=== PATIENT | female | born 1935 | race Hispanic/Latino ===

== ENCOUNTER 2018-10-22 13:14 | Inpatient (IN) | payer MEDICARE ==
[~2018-10-22] VITALS: Ht 160 cm; Wt 91.2 kg
[~2018-10-22 13:14] MED LIST: ACETAMINOPHEN650 M1 PO; ADULT LOW DOSE81 MG PO; CARVEDILOL25 MG; COREG12.5 MG PO; FUROSEMIDE40 MG; HECTOROL2 MCG/1 ML PO; HUMALOG100 UNIT/1 SC; ISOSORBIDE MONO30 MG; LANTUS 3ML100 UNITS/ SQ; LANTUS100 UNIT/1 SQ; LEVAQUIN250 MG PO; LISINOPRIL10 MG PO; LISINOPRIL20 MG PO; NIFEDIPINE ER90 MG PO; NOVOLIN R100 UNIT/1 SQ; PHOSLO667 MG; PHOSLO667 MG PO; SODIUM BICARBO650 MG PO; TYLENOL ARTHRI650 MG PO; ZOCOR40 MG PO; [UNRECOGNIZED DRUG - OTHER] PO
--- OUTSIDE RECORDS SUMMARY | 2018-10-22 13:18 | XMS REPORT | Clinical Summary ---
Author Author [facility] Address Unknown Phone Unavailable Care Team Providers Care Advertising Representative Name Role Phone Asked, No Pcp PCP Unavailable Allergies Comments Active Allergy Reactions Severity Noted Date Iodine 07/17/2016 Nsaids (Non-Steroidal 07/17/2016 Anti-Inflammatory Drug) Penicillins 07/17/2016 Medications End Date Status Medication Sig Dispensed Refills Start Date Active aspirin (ECOTRIN) 81 MG Take 81 mg by 0 enteric coated tablet mouth daily. Active lisinopril Take 20 mg by 0 (PRINIVIL,ZESTRIL) 20 mg mouth daily. tablet Active sodium bicarbonate 648 MG Take 648 mg 0 tablet by mouth 4 (four) times a day. Active vitamin A 8000 UNIT Take 8,000 0 capsule Units by mouth daily. Active ascorbic acid, vitamin C, Take 500 mg 0 (ascorbic acid with yenni by mouth hips) 500 MG tablet daily. Active INSULIN Inject under 0 GLARGINE,HUM.REC.ANLOG the skin. (LANTUS SUBQ) Active insulin ASPART (NovoLOG Inject under 0 Flexpen) 100 unit/mL the skin. insulin pen Active Problems Not on file Family History Medical History Relation Name Comments Diabetes Brother Heart disease Brother Hepatitis Brother Hypertension Brother Lung disease Brother Arthritis Mother Hypertension Mother Alcohol abuse Sister Arthritis Sister Diabetes Sister Drug abuse Sister Heart disease Sister Hypertension Sister Lung disease Sister Relation Name Status Comments Brother Mother Sister Social History Date Tobacco Use Types Packs/Day Years Used Never Smoker Alcohol Use Drinks/Week oz/Week Comments No Sex Assigned at Date Recorded Not on file Industry Job Start Date Occupation Not on file Not on file Not on file Travel End Travel History Travel Start No recent travel history available. Last Filed Vital Signs Not on file Plan of Treatment Health Maintenance Due Date Last Done Comments SHINGLES VACCINES (#1) 1986 65+ PNEUMOCOCCAL VACCINE 2001 (1 of 2 - PCV13) INFLUENZA VACCINE 10/09/2018 Results Not on fileafter 10/21/2017 Insurance Type Payer Benefit Subscriber ID Effective Phone Address Plan / Dates Group Medicare MEDICARE MEDICARE xxxxxxxxxx [id number] [place], PART A AND [place] Advance Directives Patient has advance care planning documents on file. For more information, michelle sanchez contact: Blair Christian [address] [place] [address]
--- OUTSIDE RECORDS SUMMARY | 2018-10-22 13:18 | XMS REPORT ---
[facility] Address Unknown Phone Unavailable Care Team Providers Care Quality Assurance Supervisor Body Name Role Phone Jeovany YANCEY Unavailable Unavailable Problems This patient has no known problems. Allergies, Adverse Reactions, Alerts This patient has no known allergies or adverse reactions. Medications This patient has no known medications. Results Test Description Test Time Test Comments Text Results Atomic Results Result Comments CHEST 2 VIEWS [place] [address] Patient Name: SAVANNAH ELLIS MR #: [id number] : 1935 Age/Sex: 81/F Req #: [id number] Adm Physician: Ordered by: ISAK YANCEY MD Report #: [id number] Location: RAD Room/Bed: Procedure: [id number] DX/CHEST 2 VIEWS Exam Date: Exam Time: REPORT STATUS: Signed PROCEDURE: X- RAY CHEST, TWO VIEWS COMPARISON: 03/03/2014. INDICATIONS: FLUID OVERLOAD, ASTHMA FINDINGS: The lungs remain well inflated. No focal airspace consolidation, pleural effusion, or pneumothorax. Stable cardiomediastinal contour with tortuosity and atherosclerotic calcification of the thoracic aorta. Pulmonary venous congestion is similar in degree to that noted on 03/03/2014. No acute osseous abnormality. Multilevel degenerative disc changes of the thoracic spine. CONCLUSION: Pulmonary venous congestion, similar in degree to that noted on 03/03/2014. Dictated by: Candida Lima M.D. on 11/01/2016 at 14:00 Electronically approved by: Candida Lima M.D. on 11/01/2016 at 14:00 Dictated By: CANDIDA LIMA MD 1400 Transcribed By: ANN on 11/01/16 1400 COPY TO: ISAK YANCEY MD
[2018-10-22] MEDS ORDERED: CLONIDINE HCL 0.2 MG TAB PO ONE (13:45)
[2018-10-22] MEDS ORDERED: ONDANSETRON HCL 4 MG ORAL DISINTEGRATING TAB PO ONE (13:45)
[2018-10-22] MEDS: HYDROCODONE/APAP 5MG-325MG TAB PO ONE ×2 (13:51→13:52)
[2018-10-22] MEDS ORDERED: HYDROCODONE/APAP 5MG-325MG TAB ONE (13:54)
--- NOTE | 2018-10-22 13:54 | NUR ---
PT REFUSED O2. STATES NOT SOB AND FEELS COMFORTABLE. PT SUPPOSE TO WEAR O2 AT HOME, BUT IS NON COMPLAINT PER PT AND FM
[2018-10-22] MEDS ORDERED: CLONIDINE HCL 0.1 MG TAB ONE (13:55)
[2018-10-22] MEDS ORDERED: HYDROCODONE/APAP 5MG-325MG TAB PO ONE (14:00)
--- NOTE | 2018-10-22 14:09 | Diagnostic Imaging Report ---
EXAMINATION: CXR 1 [facility] INDICATION: Pain COMPARISON: Reports of multiple prior chest radiographs most recently 06/07/2015. Images not available for comparison. FINDINGS: LINES/TUBES:None LUNGS:The lungs are moderately inflated. There is perihilar fullness and indistinctness of the pulmonary vasculature. PLEURA:No pleural effusion or pneumothorax. MEDIASTINUM:Cardiomediastinal silhouette is stably enlarged. Atherosclerotic calcifications of the thoracic aorta. BONES/SOFT TISSUES:No acute osseous injury. ABDOMEN:No free air under the diaphragm. IMPRESSION: Pulmonary interstitial edema. Cardiomegaly. Signed by: Vicki Johnson MD on 10/22/2018 2:06 PM
[2018-10-22] MEDS ORDERED: ZOLPIDEM TARTRATE 5 MG TAB PO PRN (14:30)
[2018-10-22] MEDS ORDERED: HYDROCODONE/APAP 7.5MG-325MG 1 EA TAB PO PRN (14:30)
[2018-10-22] MEDS ORDERED: ONDANSETRON HCL INJ 2MG/ML 2ML 2 MG/ML VIAL IV PRN (14:30)
[2018-10-22] MEDS ORDERED: HYDRALAZINE HCL 20 MG/ML VIAL IV PRN (14:30)
[2018-10-22] MEDS ORDERED: DIPHENHYDRAMINE HCL INJ 50 MG/ML VIAL IV PRN (14:30)
[2018-10-22] MEDS ORDERED: SODIUM CHLORIDE FLUSH 10 ML SYR INJ PRN (14:30)
[2018-10-22] MEDS ORDERED: CLONIDINE HCL 0.2 MG TAB PO PRN (14:30)
[2018-10-22] MEDS ORDERED: ACETAMINOPHEN 325 MG TAB PO PRN (14:30)
[2018-10-22] MEDS ORDERED: MORPHINE SULFATE 2 MG/ML SYR 1ML IV PRN (14:30)
--- NOTE | 2018-10-22 14:55 | NUR ---
[facility] called for transport
--- NOTE | 2018-10-22 15:11 | NUR ---
now agrees to o2
--- NOTE | 2018-10-22 15:52 | NUR ---
update plan of care, eta 10=12 mins ems
[2018-10-22] MEDS ORDERED: FAMOTIDINE 20 MG TAB PO SCH (16:30)
--- NOTE | 2018-10-22 16:50 | NUR ---
received pt via stretcher from ER accompanied by 2 daughters. pt Bangladeshi speaking. denies pain. Resp even and unlabored on 2 lpm O2 via NC. oriented to room and use of call light, call light placed within reach.
--- OUTSIDE RECORDS SUMMARY | 2018-10-22 17:20 | XMS REPORT | Clinical Summary ---
Author Author [facility] Organization [facility] Address Unknown Phone Unavailable Care Team Providers Care Custody Officer Name Role Phone Asked, No Pcp PCP [...] more information, michelle sanchez contact: Blair Christian [address] [place] [address]
[2018-10-22] MEDS ORDERED: SODIUM CHLORIDE 0.9% 1000ML 2,000 ML ONE (17:28)
[2018-10-22 17:29] VITALS: BP 109/70
[2018-10-22] MEDS ORDERED: DEXTROSE 50% SYRINGE 50 ML IV PRN (17:30)
[2018-10-22] MEDS ORDERED: EPOETIN ALFA 10000 UNIT/ML VIAL SC SCH (18:15)
[2018-10-22 18:49] VITALS: BP 109/70
[2018-10-22 18:53] VITALS: BP 109/70
[2018-10-22] MEDS ORDERED: NOVOLOG100 UNITS1 SC (19:21)
[2018-10-22] MEDS ORDERED: LANTUS 3ML100 UNITS/ SQ (19:21)
--- NOTE | 2018-10-22 19:45 | NUR ---
PATIENT IS AOX3, NO DISTRESS NOTED. PATIENT CURRENTLY ON DIALYSIS AND FAMILY MEMBER IS PRESENT AT BEDSIDE. NASAL CANNULA IS INTACT AND FLOWING AT 2 LITERS, CALL LIGHT WITHIN REACH, WILL CONTINUE TO MONITOR.
[2018-10-22 20:10] VITALS: BP 138/47
[2018-10-22] MEDS: INSULIN LISPRO 100 UNIT/1 ML 3ML VIAL SQ SCH (20:12)
--- NOTE | 2018-10-22 21:40 | NUR ---
PATIENT IS COMPLETE WITH DIALYSIS, NO SIGNS OF DISTRESS. PATIENT IS RESTING COMFORTABLY, FAMILY MEMBER IS PRESENT, WILL CONTINUE TO MONITOR.
[2018-10-22 21:50] VITALS: BP 138/47
--- NOTE | 2018-10-22 22:05 | NUR ---
RADIOLOGY HAS COME TO PICK THE PATIENT UP FOR CT SCAN.
--- NOTE | 2018-10-22 22:35 | NUR ---
RADIOLOGY HAS RETURNED PATIENT FROM CT SCAN.
[2018-10-22] MEDS ORDERED: ATORVASTATIN CA20 MG PO (22:42)
[2018-10-22] MEDS ORDERED: VITAMIN D1000 UNI1 PO (22:42)
--- NOTE | 2018-10-22 22:57 | Diagnostic Imaging Report ---
EXAMINATION: Head CT without contrast. HISTORY:Altered mental status. COMPARISON:Report of CT head from 06/03/2015, prior images are not available for comparison at the time of interpretation. TECHNIQUE: Multidetector axial images were obtained from the foramen magnum to the vertex without contrast. The images were reconstructed using brain and bone algorithms. Thin section brain images were reformatted into coronal and sagittal planes. Dose modulation, iterative reconstruction, and/or weight based adjustment of the mA/kV was utilized to reduce the radiation dose to as low as reasonably achievable. Intravenous contrast: None IMAGE QUALITY: Suboptimal evaluation due to motion artifact particularly at the level of skull base and posterior fossa structures. FINDINGS: Skull/scalp: No lytic or blastic. lesions. No surgical changes. Parenchyma: Nonspecific bilateral frontoparietal patchy white matter hypodensity are likely related to small vessel ischemic changes. Focal hypodensity in the general of right internal capsule that extends to the right lentiform nucleus represents chronic lacunar infarct. No acute hemorrhage, mass or acute major vascular territorial infarct. Arteries: No density suggestive of thrombosis. Dural sinuses: No abnormal density suggestive of thrombosis. Ventricles: Moderate compensated dilatation due to volume loss. No hydrocephalus. Extra-axial spaces: No abnormal density. Brain volume: Generalized age-related cerebral volume loss. Craniocervical junction: No mass, Chiari malformation, or basilar invagination. Sella: No mass. Paranasal/mastoid sinuses: Imaged portions unremarkable. IMPRESSION: 1. No acute intracranial abnormality, particularly no acute hemorrhage, mass or acute major vascular territorial infarct. 2. Chronic lacunar infarct in right striato-capsular region. 3. Mild supratentorial white matter microvascular ischemic changes. 4. Generalized age-related cerebral volume loss. Signed by: Dr. Savanah Cline M.D. on 10/22/2018 10:53 PM
[2018-10-22 23:46] VITALS: BP 138/64
[2018-10-23] VITALS (9 sets, daily range): BP systolic 113–148; BP diastolic 42–56
--- NOTE | 2018-10-23 01:54 | Consultation ---
DATE OF CONSULTATION: 10/22/2018 Renal consultation. REASON FOR CONSULTATION: End-stage renal disease, volume overload. HISTORY OF PRESENT ILLNESS: An 83-year-old female with end-stage renal disease, on hemodialysis Saturday, Saturday, Saturday, who after 30 minutes of dialysis was having severe bilateral hand pain and left shoulder pain, requiring to be taken off dialysis. The patient was brought to [facility]. She was found to have volume overload and pulmonary edema and was admitted, and the patient is currently on hemodialysis without hand or shoulder pain. According to the patient's daughter, she has been slurring her speech. Lately, she has noticed some facial asymmetry and was concerned she might have had a stroke that has been going on for a few days. REVIEW OF SYSTEMS: As above. All other systems negative. PAST MEDICAL HISTORY: 1. End-stage renal disease, on hemodialysis Saturday, Saturday, Saturday at [facility]. 2. Diabetes. 3. Edema. 4. Hypertension. 5. Congestive heart failure. 6. Secondary hyperparathyroidism. PAST SURGICAL HISTORY: Left upper extremity AV fistula. SOCIAL HISTORY: No tobacco. No alcohol. No IV drugs. FAMILY HISTORY: Noncontributory. ALLERGIES: PENICILLIN AND IODINE. CURRENT MEDICATIONS: See list. PHYSICAL EXAMINATION: VITAL SIGNS: Blood pressure 109/70, pulse 55, respiratory rate 20, and temperature 97.2. GENERAL: No apparent distress. HEENT: Oropharynx clear. No scleral icterus. No peripheral edema. NECK: Supple. Difficult to assess jugular venous pressure. CHEST: Clear to auscultation with decreased breath sounds at bases. CARDIOVASCULAR: Regular rate and rhythm. ABDOMEN: Soft. Positive bowel sounds. EXTREMITIES: +edema. LABORATORY DATA: Hemoglobin 9.6, potassium 4.3, albumin 2.3, and phosphorus 5.1, and troponin 0.057. ASSESSMENT AND PLAN: 1. End-stage renal disease. The patient currently on hemodialysis. We will continue Saturday, Saturday, Saturday. 2. Volume overload with pulmonary edema. We will schedule for extra ultrafiltration in the morning. 3. Anemia secondary to chronic kidney disease. We will start the patient on Epogen. 4. Altered mental status with facial asymmetry. We will get a CT scan, may need MRI and neurology evaluation. 5. Shoulder pain, unclear etiology. MD DUSTIN Hinojosa /[id number]
[2018-10-23] MEDS: INSULIN LISPRO 100 UNIT/1 ML 3ML VIAL SQ SCH ×4 (07:30→22:10)
[2018-10-23 07:57] LABS: BASOPHILS # (AUTO) 0.1 (0.0-0.1); BASOPHILS % 1.1 % (0.0-1.0); EOSINOPHILS # (AUTO) 0.2 (0.0-0.4); HEMATOCRIT 38.7 % (34.2-44.1); HEMOGLOBIN 12.1 g/dL (12.0-16.0); LYMPHOCYTES # (AUTO) 1.1 (1.0-3.2); LYMPHOCYTES % 24.7 % (18.0-39.1); MEAN CORPUSCULAR HEMOGLOBIN 31.8 pg (28-32); MEAN CORPUSCULAR HGB CONC 31.3 g/dL (31-35); MEAN CORPUSCULAR VOLUME 101.6 fL (81-99); MONOCYTES # (AUTO) 0.5 (0.2-0.8); NEUTROPHILS # (AUTO) 2.7 (2.1-6.9); PLATELET COUNT 194 x10e3/uL (140-360); RED BLOOD COUNT 3.81 x10e6/uL (3.6-5.1)
[2018-10-23 08:15] LABS: ANION GAP 12.3 mmol/L (8-16); CALCIUM 8.4 mg/dL (8.4-10.2); CREATININE, SERUM 4.23 mg/dL (0.57-1.11); POTASSIUM 4.3 mmol/L (3.5-5.1)
[2018-10-23] MEDS ORDERED: FAMOTIDINE 20 MG TAB ONE (09:28)
[2018-10-23] MEDS: FAMOTIDINE 20 MG TAB PO SCH ×2 (09:46→17:30)
[2018-10-23] MEDS ORDERED: SODIUM CHLORIDE 0.9% 1000ML 2,000 ML ONE (09:53)
--- NOTE | 2018-10-23 18:28 | Consultation ---
DATE OF CONSULTATION: 10/23/2018 Cardiology Consultation CONSULTING PHYSICIAN: Maynor Rojas MD, Interventional Cardiology. REASON FOR CONSULTATION: Shortness of breath and discomfort to the upper extremities, recent facial droop per family concerning for stroke. HISTORY OF PRESENT ILLNESS: An 83-year-old woman with a past medical history significant for morbid obesity, hypertension, diabetes mellitus, dyslipidemia, and end-stage renal disease on scheduled dialysis for approximately six years, presents to the hospital with complaints of progressive fatigue and shortness of breath following incomplete dialysis. The patient was asking for dialysis to be discontinued after approximately 30 minute of the sessions due to complaints of upper extremity and shoulder discomfort. She was found to be in volume overload. After resumption of dialysis, she has tolerated it well, declining any presence of chest discomfort or upper extremity discomfort whatsoever during dialysis or after. She denies any exertional complaints. Per family member, she has some facial droop for which a stroke workup is underway. Currently, she feels well. REVIEW OF SYSTEMS: A 12-system review is negative except for as noted above. ALLERGIES: PENICILLIN AND IODINE INCLUDING ORAL AND IV DYE. PAST MEDICAL HISTORY: Significant for hypertension, dyslipidemia, diabetes mellitus, end-stage renal disease and secondary hyperparathyroidism. SOCIAL HISTORY: No smoking, alcohol, or drugs. FAMILY HISTORY: Noncontributory. PHYSICAL EXAMINATION: VITAL SIGNS: Temperature 97.9, heart rate 57, blood pressure 148/55, respiratory rate 20, O2 saturation 95%. BMI 35.6. GENERAL: In no acute distress, alert. NECK: No JVD. CHEST: Clear to auscultation. CARDIOVASCULAR: Regular rate and rhythm. Normal S1, S2. No S3 or S4. Systolic ejection murmur 1/6. ABDOMEN: Soft and nontender. EXTREMITIES: With no edema. Warm distal extremities. Some telangiectasias to lower extremities and slight skin discoloration. CARDIOVASCULAR MEDICATIONS: Reviewed. Hydralazine 10 mg every 4 hours p.r.n., clonidine 0.2 mg t.i.d. p.r.n. on insulin lispro. LABORATORY DATA: Studies reviewed. Sodium 135, potassium 4.3, chloride 96, bicarbonate 31, BUN 18, creatinine 4.2, glucose 140. White blood cells 4.5, hemoglobin 12.1, platelets 194. IMAGING DATA: Echocardiogram evaluated, preserved left ventricular systolic function. Left ventricular ejection fraction of 60% to 65%. Impaired relaxation, which is age-appropriate and left atrial enlargement, mild and aortic valve sclerosis. ASSESSMENT: 1. An 83-year-old woman presents with volume overload in the setting of incomplete dialysis sessions, now improving following resumption of dialysis, full sessions. 2. Episodes of facial droop, undergoing evaluation for possible stroke. 3. History of hypertension, most recently being managed with p.r.n. medications as her blood pressure has been on the lower side during dialysis. 4. Morbid obesity. 5. Metabolic syndrome. RECOMMENDATIONS: 1. Continue p.r.n. antihypertensives for now. 2. Consider adding aspirin and statin therapy. 3. Await imaging studies from brain standpoint and a neurologic assessment regarding possible CVA. Thank you for the opportunity to participate in the care of Ms. June. Please call with any questions, . MD ISRAEL Weston/MODKrystal /[id number]
--- NOTE | 2018-10-23 19:33 | Consultation ---
DATE OF CONSULTATION: 10/23/2018 Neurology Consult Note HISTORY OF PRESENT ILLNESS: Ms. Gomes is an 83-year-old woman with an extensive past medical history, admitted to [facility] as an inpatient on October 22, 2018, with end-stage renal disease with volume overload with pulmonary edema. At the time of admission, the patient's daughter endorsed a 1-week history of neurological deficits, prompting the request for a neurological evaluation. Over the past one week, the patient has appeared more confused with slurred speech, left hemiparesis, and deviation of the tongue towards the left. According to the patient's daughter, who is a nurse, these symptoms have waxed and waned over the past several days. Ms. Gomes previously experienced similar symptoms 1-1/2 years ago with hypercapnia. Other symptoms endorsed by the patient over an unknown period of time include numbness and tingling of both hands and arms, left shoulder pain with radicular pain to the left elbow, lower extremity edema and pain. Upon presentation to the emergency center at [facility], the patient was afebrile with a blood pressure of 202/79 mmHg and a pulse of 69 beats per minute. Documentation of the patient's neurological examination is unavailable for review at this time. While in the emergency center, the patient underwent a CT of the brain without contrast, which did not show evidence of recent large territorial ischemia or hemorrhage. However, the study did reveal a remote lacunar infarct in the right striatocapsular region. According to the patient's daughter, neither Ms. Gomes nor any of her family members were aware that the patient had previously suffered a stroke. Ms. Gomes was admitted to [facility] as an inpatient for hemodialysis as well as management of hypertension. As the patient's blood pressure has been gradually normalized and as the patient has received hemodialysis (10/22/2018 and 10/23/2018), the previously described confusion, slurred speech, left hemiparesis, and left tongue deviation have significantly improved/resolved. REVIEW OF SYSTEMS: Left shoulder pain, confusion, deviation of the tongue towards the left, dysarthria, left hemiparesis, bilateral arm numbness and tingling, lower extremity pain and edema. Otherwise, a 12-point review of systems is negative. PAST MEDICAL HISTORY: Hypertension, hyperlipidemia, diabetes mellitus, congestive heart failure, end-stage renal disease on hemodialysis Mondays, Wednesdays, and Fridays, nephrolithiasis, pancreatitis, prior stroke with unknown residual deficits, secondary hyperparathyroidism, peripheral vascular disease, deep venous thromboses, congenital absence of the gallbladder. PAST SURGICAL HISTORY: Left nephrectomy, left knee meniscectomy, ORIF for left hip fracture, left forearm AV fistula placement. PAST HOSPITALIZATIONS: Surgeries/procedures as listed, childbirth, multiple hospitalizations for various symptoms and diagnoses. FAMILY MEDICAL HISTORY: The patient's mother is from an intracerebral hemorrhage. She had hypertension as well. The patient's sister is alive and has diabetes mellitus. Otherwise, no significant family medical history is reported. SOCIAL HISTORY: Ms. Gomes is . She is a housewife. The patient does not report current or prior tobacco, alcohol, or recreational drug use. HOME MEDICATIONS: Aspirin 81 mg by mouth daily, atorvastatin 40 mg by mouth daily, NovoLog 10 units injected subcutaneously three times daily with meals, Lantus 15 units injected subcutaneously at bedtime daily, calcium acetate 667 mg capsule, sodium bicarbonate 650 mg by mouth twice daily, vitamin D3 1000 units by mouth daily. HOSPITAL MEDICATIONS: Tylenol, clonidine, dextrose, Benadryl, hydralazine, E[place], Humalog, morphine, Zofran, Ambien. ALLERGIES: PENICILLIN. NO KNOWN FOOD ALLERGIES. NO KNOWN ALLERGIES TO LATEX. THE PATIENT HAS A DOCUMENTED ALLERGY TO IODINE, BUT THE DAUGHTER REPORTS THIS ALLERGY WAS PLACED IN THE PATIENT'S CHART DUE TO POOR RENAL FUNCTION. TO HER KNOWLEDGE, MS. GOMES HAS NEVER EXPERIENCED AN ALLERGIC REACTION TO IODINATED CONTRAST. PHYSICAL EXAMINATION: VITAL SIGNS: Height 63 inches, weight 201 pounds, BMI 35.6 kg/m2, blood pressure 148/55 mmHg, pulse 57 beats per minute, respiratory rate 20 breaths per minute, and oxygen saturation 95% on 2 L by nasal cannula. GENERAL: The patient is awake and alert, does not appear distressed. Obese. HEENT: Normocephalic, atraumatic. Pupils are equal, round, and reactive to light. Moist mucous membranes. NECK: Supple. No appreciable thyromegaly. No appreciable carotid bruits. CARDIOVASCULAR: S1, S2, regular rate and rhythm. No murmurs, rubs, or gallops. RESPIRATORY: Clear to auscultation bilaterally. No wheezes, rhonchi, or rales. EXTREMITIES: The skin is warm and dry. No clubbing, cyanosis, or edema. The posterior tibial and dorsalis pedis pulses are 1+ and symmetric. SKIN: No rashes or lesions. NEUROLOGIC: Memory/Attention: The patient is awake and alert, oriented to person, place, time, and situation. Cranial Nerves: Cranial nerve I- not tested. Cranial nerve II, III, IV, and - pupils are equal and round, react briskly to light (from 4 mm to 2 mm). Extraocular movements intact. No nystagmus. Cranial nerve V - sensation to light touch is grossly intact in the bilateral V1 through V3 distributions. Strength in the temporalis and masseter muscles are within normal limits. Cranial nerve VII - the face is symmetric as are all facial movements. Strength is within normal limits. Cranial nerve VIII - hearing is intact to finger rub bilaterally. Cranial nerve 9, 10-the soft palate elevates equally and symmetrically. Cranial nerve XI - normal strength of the bilateral sternocleidomastoid and trapezius muscles. Cranial nerve 12-the tongue protrudes midline and moves symmetrically from [id number]. Strength: Bulk is normal. Strength is 5/5 in the right deltoid, biceps, triceps, wrist flexors and extensors, finger flexors and extensors, intrinsic hand muscles, hip flexors, knee flexors and extensors, ankle dorsiflexion and plantar flexion, and intrinsic foot muscles. Strength is 5/5 in the left arm flexors, 4+/5 in the left arm extensors, 4+/5 in the left leg flexors, and 5/5 in the left leg extensors. Tone is mildly increased in the left arm and left leg. DTRs: Deep tendon reflexes are 1+ and symmetric at the triceps, biceps, and brachioradialis. Deep tendon reflexes are trace and symmetric at the patellas. Deep tendon reflexes are absent and symmetric at the Achilles. Plantar responses are flexor bilaterally. Sensation: Sensation is grossly intact to light touch in both arms and both legs. Cerebellar: Deferred secondary to the patient's pain. Gait: Deferred. Speech: Spontaneous speech is normal without appreciable dysarthria or aphasia. Repetition is intact. Involuntary movements: None. Pronator drift: Positive in the left arm. LABORATORY DATA: A basic metabolic panel is significant for sodium of 135, chloride of 96, carbon dioxide of 31, creatinine of 4.23, estimated GFR of 10, and glucose of 140. Serum glucoses have ranged from 55-140 since the patient's admission. CBC with differential and platelets reveals a white blood cell count of 4.54 with 59.0% neutrophils, 24.7% lymphocytes, 11.0% monocytes, 4.0% eosinophils, and 1.1% basophils. The hemoglobin and hematocrit are 12.1 and 38.7, respectively. The platelet count is 194. DIAGNOSTIC STUDIES: Echocardiogram on 10/23/2018: Ejection fraction 35% to 40%. Concentric left ventricular hypertrophy. Left atrial enlargement. Left ventricular enlargement. Trace mitral and tricuspid regurgitation. Chest x-ray on 10/22/2018: Pulmonary interstitial edema. Cardiomegaly. CT of the brain without contrast 10/22/2018: On my review, there is no evidence of recent large territorial ischemia, hemorrhage, mass, or mass effect. A chronic lacunar infarct is seen in the right striatocapsular region. There is mild diffuse cerebral atrophy with compensatory dilatation of the ventricles, appropriate for the patient's age. Their findings compatible with [id number] chronic small-vessel ischemic disease. ASSESSMENT AND PLAN: Ms. Gomes is an 83-year-old woman with an extensive past medical history, admitted to [facility] on October 22, 2018, with hypertensive emergency, end-stage renal disease on hemodialysis with a need for hemodialysis secondary to incomplete hemodialysis prior to arrival and volume overload with a 1-week history of fluctuating confusion, slurred speech, and left hemiparesis. The patient has undergone a thorough neurological examination with findings detailed above. Her laboratory data and other diagnostic studies have been reviewed and are documented above. In my opinion, Ms. Gomes's symptoms are directly or indirectly, through recurrence of prior deficits, related to hypertensive emergency and end-stage renal disease with volume overload. Continue with current treatments and the patient will return to her prior neurological baseline. There are no new recommendations from the Neurology Service at this time. The patient may be discharged per the primary service. TIME SPENT: 70 minutes. Germania Severino MD CP/MODL /[id number]
[2018-10-23] MEDS ORDERED: GABAPENTIN 100 MG CAP PO SCH (21:00)
[2018-10-24 04:57] VITALS: BP 117/44
[2018-10-24] MEDS ORDERED: ACETAMINOPHEN 325 MG TAB PO PRN (05:15)
--- NOTE | 2018-10-24 07:00 | NUR ---
RECEIVED AM REPORT FROM NURSE, MORNING ROUNDS DONE. PT IS RESTING COMFORTABLY IN BED, NO S/S OF DISTRESS. CALL LIGHT WITHIN REACH, SIDE RAILS UP. DAUGHTER IS AT THE BEDSIDE.
--- NOTE | 2018-10-24 07:06 | NUR ---
REPORT GIVEN TO DAY NURSE. PATIENT IS RESTING COMFORTABLY IN BED. BED IS IN LOWEST POSITION AND CALL OBANDO IS WITHIN REACH.
[2018-10-24] MEDS: INSULIN LISPRO 100 UNIT/1 ML 3ML VIAL SQ SCH ×2 (07:30→11:30)
[2018-10-24 08:15] VITALS: BP 122/47
[2018-10-24 09:15] VITALS: BP 122/47
[2018-10-24] MEDS: FAMOTIDINE 20 MG TAB PO SCH (09:15)
[2018-10-24] MEDS ORDERED: SODIUM CHLORIDE 0.9% 1000ML 2,000 ML ONE (09:28)
--- NOTE | 2018-10-24 10:30 | NUR ---
DR. CARSON AT THE BEDSIDE. GAVE VERBAL ORDERS TO CHECK WITH NEURO AND CARDIO TO GET CLEARANCE FOR DISCHARGE. IF NEURO AND CARDIO CLEARS PT, DR. CARSON GAVE VERBAL ORDERS TO DISCHARGE THE PT HOME.
[2018-10-24 12:00] VITALS: BP 122/46
--- NOTE | 2018-10-24 12:32 | NUR ---
EDUCATED ABOUT IMM, SIGNED, FILED IN CHART, WITH COPY LEFT WITH FAMILY AT BEDSIDE.
--- NOTE | 2018-10-24 14:33 | Progress Note ---
DATE: 10/24/2018 Cardiology Progress Note SUBJECTIVE: No complaints today. Undergoing dialysis. Denies chest pain or shortness of breath. Denies any episodes of weakness or numbness and neurologic evaluation is undergoing. OBJECTIVE: VITAL SIGNS: Temperature 97 degrees, heart rate 65, blood pressure 122/47, respiratory rate 17, O2 saturation 97%, BMI 35.6. GENERAL: No acute distress, alert. NECK: No JVD. CHEST: Clear to auscultation. CARDIOVASCULAR: Regular rate and rhythm. Normal S1 and S2. ABDOMEN: Soft, nontender. EXTREMITIES: No edema. CARDIOVASCULAR MEDICATIONS: Reviewed. Clonidine 0.2 mg t.i.d. p.r.n., hydralazine 10 mg q.4 hours p.r.n. STUDIES: Reviewed. Sodium 135, potassium 4.3, chloride 96, bicarbonate 31, BUN 18, creatinine 4.2, glucose 140. White blood cell count 4.5, hemoglobin 12, platelets 194. ASSESSMENT: An 83-year-old woman with, 1. End-stage renal disease. 2. Hypertension. 3. Suspected cerebrovascular accident, undergoing neurologic assessment. 4. Missed dialysis with volume overload, now improved. RECOMMENDATIONS: From a cardiovascular standpoint, cleared for discharge. If neurology assessment complete, would recommend on discharge adding aspirin and statin to current regimen. MD ISRAEL Weston/ADELA /[id number]
--- NOTE | 2018-10-24 15:00 | NUR ---
RECEIVED REPORT FROM DIALYSIS NURSE, NO COMPLICATIONS DURING HD, PT REMAINED STABLE. PULLED 2.3 LITERS OFF
--- NOTE | 2018-10-24 15:30 | NUR ---
DR. HOGUE RESPONDED AND CLEARED THE PATIENT FROM [employer]. PT WILL BE DISCHARGED HOME PER DR. CARSON'S ORDERS
[2018-10-24 16:00] VITALS: BP 84/47
--- NOTE | 2018-11-27 20:35 | Discharge Summary ---
ADDENDUM: The consult by Dr. Langford. Dr. Langford's assessment of end-stage renal disease, currently with dialysis, will continue the Saturday, Saturday, and Saturday schedule. Volume overload with pulmonary edema. We will be scheduling extra ultrafiltration. Anemia secondary to chronic kidney disease, we will be starting the patient on Epogen. Altered mental status with facial asymmetry. We will be obtaining a CT scan. Cardiology followed by Dr. Floyd regarding shortness of breath and discomfort to upper extremities, issues concerning for stroke. With his review, episodes of facial droop, undergoing evaluation for possible stroke. History of hypertension, most recently being managed with p.r.n. medication as her blood pressure has been on the lower side during dialysis. Morbid obesity. Metabolic syndrome. Recommendation is to continue with p.r.n. antihypertensives. Consider adding aspirin and statin therapy. Awaiting the imaging regarding possible CVA. Followup consult, Dr. Severino, Neurology regarding the facial droop. Following her extensive review, she states that the patient has undergone a thorough neurologic examination and findings as detailed. She states that in her opinion the symptoms are directly or indirectly the recurrence of prior deficits related to hypertensive emergency and end-stage renal disease and volume overload. Continue the current treatments and the patient will return to her prior neurologic baseline. States that the patient can be discharged from a neuro standpoint. IMAGING: Chest x-ray, pulmonary interstitial edema, cardiomegaly. Brain CT, no acute intracranial abnormality, particularly no acute hemorrhage, mass, or acute major vascular territorial infarct. 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 Mild supratentorial white matter neck with vascular CV changes. Generalized age-related cerebral volume loss. LABORATORY STUDIES: Shows CBC is unremarkable. Chemistries shows initial glucose of 55. Electrolytes were stable. Kidney function showing BUN of 18, creatinine 4.23. Followup chemistries tend toward managing blood sugar. On 10/23, blood sugars 217, final blood sugar 158. The patient was recovering nicely. She was cleared not only from the Neurology standpoint, but also from a Cardiology standpoint. She will be discharged home. She will be discharged with continuing on her renal diabetic diet. No equipments or supplies are necessary. No drains or Abdi was needed. Activity level as directed by me as well as by Radiology, Nephrology, and Cardiology. The patient will be returning back to her three week program with dialysis. She will also be continued on: 1. Aspirin 81 mg daily. 2. Atorvastatin calcium 40 mg daily. 3. PhosLo 667 mg capsule daily. 4. Vitamin D3 1000 units capsule p.o. daily. 5. NovoLog 10 units t.i.d. before meals. 6. Lantus 15 units subcu. 7. Sodium bicarb 650 mg p.o. b.i.d. She will be returning back to her family physician in 7-10 days. If she has any questions, concerns, or any recurrence of similar symptoms, will be contacting the primary care doctor. Dictated by PADMINI Obando Oswald Ibarra MD CC/MODL /[id number]
--- NOTE | 2018-11-30 13:19 | Discharge Summary ---
CHIEF COMPLAINT: Left shoulder pain with radiation. FINAL DIAGNOSES: 1. End-stage renal disease. 2. Hypertension. 3. Old cerebrovascular accident. DISPOSITION: Home. HOSPITAL COURSE: An 83-year-old female with known history of end-stage renal disease, dialysis dependent, essential systolic hypertension, coronary artery disease, brought to the ER from the dialysis center where she had developed left shoulder pain going down the left arm. While seeing her on dialysis, she was having some issues of shortness of breath. No nausea, vomiting, or diaphoresis. Reviewed evaluation was conducted in the ER. She was showing and demonstrating 1+ pitting edema of the lower extremities. Admitted to facility for care and review regarding issues of end-stage renal disease requiring dialysis, shoulder pain, hypertension, coronary artery disease, osteoarthritis. With admission, we will continue her Nephrology consult. We will be also requesting a Cardiology followup. Home medications will be continued. Nephrology follow with Dr. Langford was carried out. Issues for dialysis were addressed. DICTATION ENDS HERE Dictated by PADMINI Obando MD TAMMI Pinto/ADELA /[id number]
== END 2018-10-24 16:32 | disposition home or self-care (01) | DRG 291 ==
LOC: FSED 13:14 → ERHOLD 14:34 → FSED 16:21 → MED/SURG2 16:50
PROC: 5A1D70Z Performance of Urinary Filtration, Intermittent, Less than 6 Hours Per Day (ICD-10-PCS; principal; 2018-10-23)
PROC: 5A1D70Z Performance of Urinary Filtration, Intermittent, Less than 6 Hours Per Day (ICD-10-PCS; 2018-10-24)
DX: I13.2 Hypertensive heart and chronic kidney disease with heart failure and with stage 5 chronic kidney disease, or end stage renal disease (principal); N18.6 End stage renal disease; I50.23 Acute on chronic systolic (congestive) heart failure; I16.1 Hypertensive emergency; Z99.2 Dependence on renal dialysis; R60.0 Localized edema; E11.22 Type 2 diabetes mellitus with diabetic chronic kidney disease; E21.3 Hyperparathyroidism, unspecified; D63.1 Anemia in chronic kidney disease; M19.90 Unspecified osteoarthritis, unspecified site; Z86.73 Personal history of transient ischemic attack (TIA), and cerebral infarction without residual deficits; E11.40 Type 2 diabetes mellitus with diabetic neuropathy, unspecified; E66.9 Obesity, unspecified; Z68.35 Body mass index [BMI] 35.0-35.9, adult; I25.10 Atherosclerotic heart disease of native coronary artery without angina pectoris; M25.512 Pain in left shoulder; E88.81 Metabolic syndrome and other insulin resistance
CPT/HCPCS: 36415; 70450; 71045; 80048; 80053; 82948; 85025; 86704; 86706; 86707; 87350; 87400; 90962; 93306; 99284; J7030; Q4081

== ENCOUNTER 2019-06-29 | Emergency (ER) | payer MEDICARE ==
[~2019-06-29] VITALS: Ht 312.4 cm; Wt 91.2 kg
[~2019-06-29] MED LIST changes: +ATORVASTATIN CA20 MG PO; +NOVOLOG100 UNITS1 SC; -PHOSLO667 MG; +VITAMIN D1000 UNI1 PO
[2019-06-29] MEDS ORDERED: CEFEPIME HCL 1 GM VIAL IV SCH (00:15)
[2019-06-29 00:31] LABS: BASOPHILS # (AUTO) 0.1 (0.0-0.1); BASOPHILS % 1.4 % (0.0-1.0); EOSINOPHILS # (AUTO) 0.3 (0.0-0.4); EOSINOPHILS % 3.7 % (0.0-6.0); HEMATOCRIT 30.9 % (34.2-44.1); HEMOGLOBIN 9.4 g/dL (12.0-16.0); LYMPHOCYTES # (AUTO) 1.8 (1.0-3.2); LYMPHOCYTES % 24.4 % (18.0-39.1); MEAN CORPUSCULAR HEMOGLOBIN 32.3 pg (28-32); MEAN CORPUSCULAR HGB CONC 30.4 g/dL (31-35); MEAN CORPUSCULAR VOLUME 106.2 fL (81-99); MONOCYTES # (AUTO) 0.6 (0.2-0.8); MONOCYTES % 8.6 % (4.4-11.3); NEUTROPHILS # (AUTO) 4.5 (2.1-6.9); NEUTROPHILS % 61.4 % (38.7-80.0); PLATELET COUNT 212 x10e3/uL (140-360); RED BLOOD COUNT 2.91 x10e6/uL (3.6-5.1)
[2019-06-29] MEDS ORDERED: LISINOPRIL10 MG PO (00:34)
[2019-06-29] MEDS ORDERED: NOVOLOG100 UNIT/1 SQ (00:36)
[2019-06-29] MEDS ORDERED: CEFEPIME 1GM/NS 0.9% 50 ML 50 ML IV ONE ×2 (00:45→00:53)
[2019-06-29 00:58] LABS: ALBUMIN/GLOBULIN RATIO 0.8 (0.8-2.0); ANION GAP 16.9 mmol/L (8-16); CALCIUM 8.8 mg/dL (8.4-10.2); CREATININE, SERUM 6.65 mg/dL (0.57-1.11); POTASSIUM 4.9 mmol/L (3.5-5.1)
--- NOTE | 2019-06-29 01:00 | Diagnostic Imaging Report ---
EXAMINATION: CHEST SINGLE (PORTABLE) INDICATION: Short of breath COMPARISON: Chest x-ray 10/22/2018 FINDINGS: TUBES and LINES: None. LUNGS/PLEURA: Low lung volumes. Perihilar haziness and bibasilar haziness. No pneumothorax. Hemidiaphragms partially obscured. HEART AND MEDIASTINUM: The cardiomediastinal silhouette is partially secured by hemidiaphragms, but mildly enlarged aortic calcifications. BONES AND SOFT TISSUES: No acute osseous lesion. Soft tissues are unremarkable. UPPER ABDOMEN: No free air under the diaphragm. IMPRESSION: Perihilar haziness and bibasilar haziness can be due to edema, atelectasis, and/or pneumonia. Pleural effusions are possible. Signed by: Marshall Olvera DO on 06/29/2019 12:56 AM
[2019-06-29 01:22] LABS: CREATINE KINASE MB 1.3 ng/mL (0-5.0)
[2019-06-29 01:40] VITALS: BP 141/108
== END 2019-06-29 02:07 | disposition home or self-care (01) ==
LOC: ER
DX: R06.09 Other forms of dyspnea (principal); I27.9 Pulmonary heart disease, unspecified; I12.0 Hypertensive chronic kidney disease with stage 5 chronic kidney disease or end stage renal disease; E11.22 Type 2 diabetes mellitus with diabetic chronic kidney disease; N18.6 End stage renal disease; Z99.2 Dependence on renal dialysis; I73.9 Peripheral vascular disease, unspecified; Z96.652 Presence of left artificial knee joint
CPT/HCPCS: 36415; 71045; 80053; 82550; 82553; 83605; 83690; 83880; 84484; 85025; 87040; 93005; 99283; J0692

== ENCOUNTER 2020-07-15 18:12 | Emergency (ER) | payer OTHER, MEDICARE ==
[~2020-07-15] VITALS: Ht 160 cm; Wt 89.8 kg
[~2020-07-15 18:12] MED LIST changes: +NOVOLOG100 UNIT/1 SQ
[2020-07-15 20:29] VITALS: BP 172/69
== END 2020-07-15 20:30 | disposition home or self-care (01) ==
LOC: FSED 18:42
DX: S00.83XA Contusion of other part of head, initial encounter (principal); S60.212A Contusion of left wrist, initial encounter; W01.0XXA Fall on same level from slipping, tripping and stumbling without subsequent striking against object, initial encounter; Y92.002 Bathroom of unspecified non-institutional (private) residence as the place of occurrence of the external cause; I12.0 Hypertensive chronic kidney disease with stage 5 chronic kidney disease or end stage renal disease; E11.22 Type 2 diabetes mellitus with diabetic chronic kidney disease; N18.6 End stage renal disease; Z99.2 Dependence on renal dialysis; K76.9 Liver disease, unspecified; I73.9 Peripheral vascular disease, unspecified; Z96.652 Presence of left artificial knee joint
CPT/HCPCS: 70450; 70486; 72125; 99284

== ENCOUNTER 2020-09-06 13:18 | Inpatient (IN) | payer MEDICARE ==
[~2020-09-06] VITALS: Ht 160 cm; Wt 89.8 kg
[2020-09-06] MEDS ORDERED: ASPIRIN 81 MG CHEW TAB PO ONE (13:45)
[2020-09-06] MEDS ORDERED: SODIUM CHLORIDE 0.9% 1000ML 1,000 ML IV STA (14:08)
[2020-09-06 14:47] LABS: BASOPHILS % 0.2 % (0.0-1.0); EOSINOPHILS # (AUTO) 0.1 (0.0-0.4); EOSINOPHILS % 0.6 % (0.0-6.0); HEMATOCRIT 32.7 % (34.2-44.1); LYMPHOCYTES # (AUTO) 0.4 (1.0-3.2); LYMPHOCYTES % 2.6 % (18.0-39.1); MEAN CORPUSCULAR HEMOGLOBIN 31.3 pg (28-32); MEAN CORPUSCULAR HGB CONC 30.6 g/dL (31-35); MEAN CORPUSCULAR VOLUME 102.5 fL (81-99); MONOCYTES # (AUTO) 0.6 (0.2-0.8); MONOCYTES % 4.4 % (4.4-11.3); NEUTROPHILS # (AUTO) 12.5 (2.1-6.9); NEUTROPHILS % 91.5 % (38.7-80.0); PLATELET COUNT 247 x10e3/uL (140-360); RED BLOOD COUNT 3.19 x10e6/uL (3.6-5.1)
[2020-09-06 15:03] LABS: ALBUMIN/GLOBULIN RATIO 0.8 (0.8-2.0); ANION GAP 20.2 mmol/L (8-16); CALCIUM 8.7 mg/dL (8.4-10.2); CREATININE, SERUM 8.99 mg/dL (0.57-1.11); POTASSIUM 5.2 mmol/L (3.5-5.1)
[2020-09-06 15:11] LABS: CREATINE KINASE MB 1.4 ng/mL (0-5.0)
[2020-09-06 15:18] LABS: B-TYPE NATRIURETIC PEPTIDE2 169.3 pg/mL (0-100)
[2020-09-06] MEDS ORDERED: MEROPENEM 500 MG in SODIUM CHLORIDE 0.9% 50ML 50 ML IV ONE (16:45)
[2020-09-06 17:27] LABS: INR 0.99; PROTHROMBIN TIME 13.7 seconds (11.9-14.5)
[2020-09-06 17:28] LABS: PARTIAL THROMBOPLASTIN TIME 26.3 seconds (23.8-35.5)
[2020-09-06] MEDS ORDERED: Vancomycin IV 1 GM in SODIUM CHLORIDE 0.9% 250ML 250 ML IV ONE (18:00)
[2020-09-06 21:00] VITALS: BP 116/46
[2020-09-06] MEDS ORDERED: MEROPENEM 500 MG in SODIUM CHLORIDE 0.9% 50ML 50 ML IV SCH (21:00)
[2020-09-06] MEDS: INSULIN GLARGINE 100 UNITS/ML VIAL SQ SCH (21:00)
[2020-09-06 22:02] VITALS: BP 116/46
[2020-09-07] VITALS (7 sets, daily range): BP systolic 100–139; BP diastolic 33–56
[2020-09-07] MEDS ORDERED: MEROPENEM 500 MG in SODIUM CHLORIDE 0.9% 50ML 50 ML IV SCH (04:00)
[2020-09-07] MEDS ORDERED: SODIUM CHLORIDE 0.9% 250ML 250 ML ONE ×2 (04:00→16:29)
[2020-09-07] MEDS: ASPIRIN 81 MG ENTERIC COATED PO SCH (05:50)
[2020-09-07] MEDS: Vancomycin IV 1 GM in SODIUM CHLORIDE 0.9% 250ML 250 ML IV SCH (05:50)
[2020-09-07 05:59] LABS: BASOPHILS % 0.3 % (0.0-1.0); EOSINOPHILS # (AUTO) 0.3 (0.0-0.4); EOSINOPHILS % 2.4 % (0.0-6.0); HEMOGLOBIN 9.6 g/dL (12.0-16.0); LYMPHOCYTES # (AUTO) 1.5 (1.0-3.2); LYMPHOCYTES % 12.2 % (18.0-39.1); MEAN CORPUSCULAR HEMOGLOBIN 31.2 pg (28-32); MEAN CORPUSCULAR VOLUME 103.9 fL (81-99); MONOCYTES % 8.2 % (4.4-11.3); NEUTROPHILS # (AUTO) 9.1 (2.1-6.9); NEUTROPHILS % 76.3 % (38.7-80.0); PLATELET COUNT 224 x10e3/uL (140-360); RED BLOOD COUNT 3.08 x10e6/uL (3.6-5.1); RED CELL DISTRIBUTION WIDTH 13.1 % (11.7-14.4)
[2020-09-07 06:30] LABS: ALBUMIN 2.8 g/dL (3.5-5.0); ALBUMIN/GLOBULIN RATIO 0.8 (0.8-2.0); ANION GAP 19.9 mmol/L (8-16); CALCIUM 8.3 mg/dL (8.4-10.2); CREATININE, SERUM 10.21 mg/dL (0.57-1.11); POTASSIUM 5.9 mmol/L (3.5-5.1)
[2020-09-07 06:47] LABS: CREATINE KINASE MB 1.7 ng/mL (0-5.0)
[2020-09-07] MEDS ORDERED: INSULIN LISPRO 100 UNIT/1 ML 3ML VIAL SQ SCH (08:00)
[2020-09-07] MEDS ORDERED: SODIUM CHLORIDE 0.9% 1000ML 1,000 ML ONE (08:01)
[2020-09-07] MEDS ORDERED: ACETAMINOPHEN 325 MG TAB PO PRN (09:09)
[2020-09-07] MEDS: INSULIN GLARGINE 100 UNITS/ML VIAL SQ SCH (09:22)
[2020-09-07] MEDS: INSULIN LISPRO 100 UNIT/1 ML 3ML VIAL SQ SCH ×2 (12:56→16:32)
[2020-09-07] MEDS: CALCIUM ACETATE 667 MG GELCAP PO SCH ×4 (13:00→14:19)
[2020-09-07] MEDS: ATORVASTATIN 20 MG TAB PO SCH (13:02)
[2020-09-07] MEDS ORDERED: SODIUM CHLORIDE 0.9% 1000ML 2,000 ML IV PRN (13:15)
[2020-09-07] MEDS: MEROPENEM 500 MG in SODIUM CHLORIDE 0.9% 50ML 50 ML IV SCH (16:31)
[2020-09-08 00:05] VITALS: BP 124/45
[2020-09-08] MEDS: MEROPENEM 500 MG in SODIUM CHLORIDE 0.9% 50ML 50 ML IV SCH (04:58)
[2020-09-08] MEDS: ASPIRIN 81 MG ENTERIC COATED PO SCH (04:59)
[2020-09-08 05:26] VITALS: BP 125/41
[2020-09-08 05:35] LABS: BASOPHILS % 0.3 % (0.0-1.0); EOSINOPHILS # (AUTO) 0.2 (0.0-0.4); EOSINOPHILS % 1.6 % (0.0-6.0); HEMATOCRIT 31.4 % (34.2-44.1); HEMOGLOBIN 9.5 g/dL (12.0-16.0); LYMPHOCYTES # (AUTO) 0.7 (1.0-3.2); LYMPHOCYTES % 6.7 % (18.0-39.1); MEAN CORPUSCULAR HEMOGLOBIN 31.1 pg (28-32); MEAN CORPUSCULAR HGB CONC 30.3 g/dL (31-35); NEUTROPHILS # (AUTO) 8.3 (2.1-6.9); NEUTROPHILS % 80.7 % (38.7-80.0); PLATELET COUNT 214 x10e3/uL (140-360); RED BLOOD COUNT 3.05 x10e6/uL (3.6-5.1); RED CELL DISTRIBUTION WIDTH 13.1 % (11.7-14.4)
[2020-09-08] MEDS: Vancomycin IV 1 GM in SODIUM CHLORIDE 0.9% 250ML 250 ML IV SCH (05:52)
[2020-09-08 06:13] LABS: ALBUMIN 2.8 g/dL (3.5-5.0); ALBUMIN/GLOBULIN RATIO 0.7 (0.8-2.0); CALCIUM 8.3 mg/dL (8.4-10.2); CREATININE, SERUM 5.68 mg/dL (0.57-1.11)
[2020-09-08 07:39] VITALS: BP 116/42
[2020-09-08] MEDS: INSULIN LISPRO 100 UNIT/1 ML 3ML VIAL SQ SCH (08:00)
[2020-09-08] MEDS: ATORVASTATIN 20 MG TAB PO SCH (08:34)
[2020-09-08] MEDS ORDERED: INSULIN GLARGINE 100 UNITS/ML VIAL SQ SCH (09:00)
[2020-09-08] MEDS ORDERED: MIDODRINE 2.5 MG TAB PO SCH (09:00)
[2020-09-08 10:59] VITALS: BP 116/42
[2020-09-08 11:12] VITALS: BP 119/56
[2020-09-09] MEDS ORDERED: ATORVASTATIN 40 MG TAB PO SCH (09:00)
== END 2020-09-08 12:20 | disposition home or self-care (01) | DRG 177 ==
LOC: ER 14:14 → ERHOLD 17:34 → IMCU 20:17 → MED/SURG 09-07 14:30
PROVIDERS: ADMIT Internal Medicine; ATTEND Internal Medicine
PROC: 5A1D70Z Performance of Urinary Filtration, Intermittent, Less than 6 Hours Per Day (ICD-10-PCS; principal; 2020-09-07)
PROC: 5A1D70Z Performance of Urinary Filtration, Intermittent, Less than 6 Hours Per Day (ICD-10-PCS; 2020-09-08)
DX: J15.6 Pneumonia due to other Gram-negative bacteria (principal); N18.6 End stage renal disease; I50.33 Acute on chronic diastolic (congestive) heart failure; I13.2 Hypertensive heart and chronic kidney disease with heart failure and with stage 5 chronic kidney disease, or end stage renal disease; E87.70 Fluid overload, unspecified; E11.22 Type 2 diabetes mellitus with diabetic chronic kidney disease; F01.50 Vascular dementia, unspecified severity, without behavioral disturbance, psychotic disturbance, mood disturbance, and anxiety; E66.9 Obesity, unspecified; Z68.36 Body mass index [BMI] 36.0-36.9, adult; E11.42 Type 2 diabetes mellitus with diabetic polyneuropathy; Z88.0 Allergy status to penicillin; Z91.041 Radiographic dye allergy status; Z79.82 Long term (current) use of aspirin; Z99.2 Dependence on renal dialysis; Z79.4 Long term (current) use of insulin; Z20.822 Contact with and (suspected) exposure to COVID-19
CPT/HCPCS: 36415; 71045; 80053; 81001; 82550; 82553; 82948; 83605; 83880; 84484; 85025; 85610; 85730; 86705; 86706; 87040; 87086; 87340; 87400; 93005; 99251; 99284; J1815; J2185; J3370; J7030; J7050; U0002

== ENCOUNTER 2022-01-26 13:58 | Emergency (ER) | payer MEDICARE, OTHER ==
[~2022-01-26] VITALS: Ht 142.2 cm; Wt 83.1 kg
== END 2022-01-26 20:10 | disposition other institution (70) ==
LOC: FSED 15:42
DX: S42.292A Other displaced fracture of upper end of left humerus, initial encounter for closed fracture (principal); W01.0XXA Fall on same level from slipping, tripping and stumbling without subsequent striking against object, initial encounter; Y93.01 Activity, walking, marching and hiking; Y92.89 Other specified places as the place of occurrence of the external cause; I12.0 Hypertensive chronic kidney disease with stage 5 chronic kidney disease or end stage renal disease; E11.22 Type 2 diabetes mellitus with diabetic chronic kidney disease; N18.6 End stage renal disease; Z99.2 Dependence on renal dialysis; K76.9 Liver disease, unspecified; I73.9 Peripheral vascular disease, unspecified; Z96.652 Presence of left artificial knee joint
CPT/HCPCS: 99284

== ENCOUNTER 2022-05-08 08:09 | Inpatient (IN) | payer MEDICARE ==
[~2022-05-08] VITALS: Ht 160 cm; Wt 82.6 kg
[2022-05-08 08:55] LABS: BASOPHILS # (AUTO) 0.1 (0.0-0.1); BASOPHILS % 0.4 % (0.0-1.0); EOSINOPHILS # (AUTO) 0.1 (0.0-0.4); EOSINOPHILS % 0.7 % (0.0-6.0); HEMATOCRIT 36.1 % (34.2-44.1); HEMOGLOBIN 11.1 g/dL (12.0-16.0); LYMPHOCYTES # (AUTO) 0.9 (1.0-3.2); LYMPHOCYTES % 5.6 % (18.0-39.1); MEAN CORPUSCULAR HEMOGLOBIN 31.6 pg (28-32); MEAN CORPUSCULAR HGB CONC 30.7 g/dL (31-35); MEAN CORPUSCULAR VOLUME 102.8 fL (81-99); MONOCYTES # (AUTO) 1.5 (0.2-0.8); MONOCYTES % 9.4 % (4.4-11.3); NEUTROPHILS # (AUTO) 13.1 (2.1-6.9); NEUTROPHILS % 83.2 % (38.7-80.0); PLATELET COUNT 291 x10e3/uL (140-360); RED BLOOD COUNT 3.51 x10e6/uL (3.6-5.1); RED CELL DISTRIBUTION WIDTH 12.7 % (11.7-14.4)
[2022-05-08 09:16] LABS: ALBUMIN 2.8 g/dL (3.5-5.0); ALBUMIN/GLOBULIN RATIO 0.5 (0.8-2.0); ANION GAP 20.4 mmol/L (8-16); CALCIUM 9.2 mg/dL (8.4-10.2); CREATININE, SERUM 7.96 mg/dL (0.57-1.11); MAGNESIUM 1.8 MG/DL (1.3-2.1); POTASSIUM 4.4 mmol/L (3.5-5.1)
[2022-05-08 09:19] LABS: INR 1.15; PROTHROMBIN TIME 14.9 seconds (11.9-14.5)
[2022-05-08 09:20] LABS: PARTIAL THROMBOPLASTIN TIME 36.7 seconds (23.8-35.5)
[2022-05-08 09:22] LABS: CREATINE KINASE MB 0.9 ng/mL (0-5.0)
[2022-05-08] MEDS ORDERED: SODIUM CHLORIDE 0.9% 500ML 500 ML IV ONE (10:15)
[2022-05-08] MEDS ORDERED: IOPAMIDOL 370 MG/ML 100 ML INFUS..BTL INJ ONE (11:02)
[2022-05-08] MEDS: ALBUTEROL SULF 0.083% NEB SOLN 3 ML NEB NEB SCH ×5 (12:35→23:40)
[2022-05-08] MEDS ORDERED: Vancomycin IV 1 GM in SODIUM CHLORIDE 0.9% 250ML 250 ML IV SCH (14:00)
[2022-05-08 16:15] VITALS: BP 100/38
[2022-05-08 16:33] VITALS: BP 100/38
[2022-05-08] MEDS ORDERED: SODIUM CHLORIDE 0.9% 250ML 250 ML ONE (16:45)
[2022-05-08] MEDS ORDERED: MELATONIN3 MG PO (17:01)
[2022-05-08] MEDS ORDERED: COLACE100 MG/10 PO (17:01)
[2022-05-08] MEDS ORDERED: CLARITIN10 MG PO (17:01)
[2022-05-08] MEDS ORDERED: RENAGEL800 MG PO (17:01)
[2022-05-08 17:12] VITALS: BP 100/38
[2022-05-08] MEDS ORDERED: MIDODRINE HCL5 MG PO (17:12)
[2022-05-08] MEDS ORDERED: ALPRAZOLAM0.25 M1 PO (17:12)
[2022-05-08] MEDS ORDERED: SODIUM CHLORIDE 0.9% 1000ML 2,000 ML IV PRN (17:45)
[2022-05-08 20:00] VITALS: BP 133/51
[2022-05-09] VITALS (7 sets, daily range): BP systolic 119–165; BP diastolic 40–91
[2022-05-09] MEDS: ALBUTEROL SULF 0.083% NEB SOLN 3 ML NEB NEB SCH ×5 (02:45→20:10)
[2022-05-09 06:10] LABS: BASOPHILS # (AUTO) 0.1 (0.0-0.1); BASOPHILS % 0.6 % (0.0-1.0); EOSINOPHILS # (AUTO) 0.1 (0.0-0.4); EOSINOPHILS % 0.6 % (0.0-6.0); HEMATOCRIT 32.6 % (34.2-44.1); HEMOGLOBIN 10.6 g/dL (12.0-16.0); LYMPHOCYTES # (AUTO) 0.9 (1.0-3.2); LYMPHOCYTES % 5.6 % (18.0-39.1); MEAN CORPUSCULAR HEMOGLOBIN 34.8 pg (28-32); MEAN CORPUSCULAR HGB CONC 32.5 g/dL (31-35); MEAN CORPUSCULAR VOLUME 106.9 fL (81-99); MONOCYTES # (AUTO) 1.6 (0.2-0.8); MONOCYTES % 9.8 % (4.4-11.3); NEUTROPHILS # (AUTO) 13.6 (2.1-6.9); NEUTROPHILS % 82.4 % (38.7-80.0); PLATELET COUNT 224 x10e3/uL (140-360); RED BLOOD COUNT 3.05 x10e6/uL (3.6-5.1); RED CELL DISTRIBUTION WIDTH 13.9 % (11.7-14.4)
[2022-05-09 06:40] LABS: ALBUMIN 2.2 g/dL (3.5-5.0); ALBUMIN/GLOBULIN RATIO 0.4 (0.8-2.0); ANION GAP 17.4 mmol/L (8-16); CALCIUM 9.2 mg/dL (8.4-10.2); CREATININE, SERUM 4.17 mg/dL (0.57-1.11); POTASSIUM 4.4 mmol/L (3.5-5.1)
[2022-05-09 07:15] LABS: CREATINE KINASE MB 1.5 ng/mL (0-5.0)
[2022-05-09] MEDS ORDERED: GUAIFENESIN/CODEINE 5 ML LIQD PO PRN (07:45)
[2022-05-09] MEDS ORDERED: ACETAMINOPHEN 325 MG TAB PO PRN (07:45)
[2022-05-09] MEDS ORDERED: LEVOFLOXACIN 500MG/D5W 100ML 100 ML IV ONE (08:45)
[2022-05-09 12:21] LABS: CREATINE KINASE MB 2.6 ng/mL (0-5.0)
[2022-05-09] MEDS ORDERED: Vancomycin IV 1 GM in SODIUM CHLORIDE 0.9% 250ML 250 ML IV ONE (17:00)
[2022-05-10] VITALS: BP 112/46
[2022-05-10] MEDS: ALBUTEROL SULF 0.083% NEB SOLN 3 ML NEB NEB SCH ×5 (03:30→19:15)
[2022-05-10 05:00] VITALS: BP 117/53
[2022-05-10 06:09] LABS: BASOPHILS # (AUTO) 0.1 (0.0-0.1); BASOPHILS % 0.4 % (0.0-1.0); EOSINOPHILS # (AUTO) 0.3 (0.0-0.4); EOSINOPHILS % 2.2 % (0.0-6.0); HEMOGLOBIN 9.5 g/dL (12.0-16.0); LYMPHOCYTES # (AUTO) 1.2 (1.0-3.2); LYMPHOCYTES % 9.5 % (18.0-39.1); MEAN CORPUSCULAR HEMOGLOBIN 30.4 pg (28-32); MEAN CORPUSCULAR HGB CONC 28.8 g/dL (31-35); MEAN CORPUSCULAR VOLUME 105.8 fL (81-99); MONOCYTES # (AUTO) 1.3 (0.2-0.8); MONOCYTES % 9.9 % (4.4-11.3); NEUTROPHILS # (AUTO) 9.9 (2.1-6.9); NEUTROPHILS % 76.6 % (38.7-80.0); PLATELET COUNT 277 x10e3/uL (140-360); RED BLOOD COUNT 3.12 x10e6/uL (3.6-5.1); RED CELL DISTRIBUTION WIDTH 13.2 % (11.7-14.4)
[2022-05-10 06:38] LABS: ANION GAP 17.4 mmol/L (8-16); CALCIUM 9.2 mg/dL (8.4-10.2); CREATININE, SERUM 5.92 mg/dL (0.57-1.11); POTASSIUM 4.4 mmol/L (3.5-5.1)
[2022-05-10 08:41] VITALS: BP 127/57
[2022-05-10] MEDS ORDERED: LEVOFLOXACIN 250MG/D5W 50ML 50 ML IV SCH (11:00)
[2022-05-10 12:27] VITALS: BP 120/71
[2022-05-10 16:09] VITALS: BP 137/62
[2022-05-10] MEDS ORDERED: Vancomycin IV 1 GM in SODIUM CHLORIDE 0.9% 250ML 250 ML IV SCH (17:00)
[2022-05-10] MEDS ORDERED: SODIUM CHLORIDE 0.9% 1000ML 2,000 ML IV PRN (17:45)
[2022-05-10 20:40] VITALS: BP 122/52
== END 2022-05-10 22:00 | disposition home or self-care (01) | DRG 871 ==
LOC: ER 08:18 → ERHOLD 11:21 → MED/SURG2 15:05
PROVIDERS: ADMIT Internal Medicine; ATTEND Internal Medicine
PROC: 5A1D70Z Performance of Urinary Filtration, Intermittent, Less than 6 Hours Per Day (ICD-10-PCS; principal; 2022-05-08)
PROC: 3E03329 Introduction of Other Anti-infective into Peripheral Vein, Percutaneous Approach (ICD-10-PCS; 2022-05-08)
DX: A41.50 Gram-negative sepsis, unspecified (principal); I50.33 Acute on chronic diastolic (congestive) heart failure; J15.6 Pneumonia due to other Gram-negative bacteria; N18.6 End stage renal disease; I13.2 Hypertensive heart and chronic kidney disease with heart failure and with stage 5 chronic kidney disease, or end stage renal disease; E44.0 Moderate protein-calorie malnutrition; I24.8 Other forms of acute ischemic heart disease; R65.20 Severe sepsis without septic shock; E11.22 Type 2 diabetes mellitus with diabetic chronic kidney disease; Z99.2 Dependence on renal dialysis; Z79.4 Long term (current) use of insulin; E66.09 Other obesity due to excess calories; Z68.35 Body mass index [BMI] 35.0-35.9, adult; E11.51 Type 2 diabetes mellitus with diabetic peripheral angiopathy without gangrene; I25.10 Atherosclerotic heart disease of native coronary artery without angina pectoris; Z90.5 Acquired absence of kidney; D63.1 Anemia in chronic kidney disease; F03.B0 Unspecified dementia, moderate, without behavioral disturbance, psychotic disturbance, mood disturbance, and anxiety; Z79.899 Other long term (current) drug therapy
CPT/HCPCS: 36415; 71045; 71260; 80048; 80053; 82550; 82553; 82948; 83605; 83735; 83880; 84484; 85025; 85610; 85730; 87040; 93005; 94640; 94799; 96361; 99284; J0456; J0692; J1956; J3370; J7030; J7040; J7050; Q9967

== ENCOUNTER 2023-11-30 19:18 | Emergency (ER) | payer MEDICARE ==
[~2023-11-30] VITALS: Ht 160 cm; Wt 67.6 kg
[~2023-11-30 19:18] MED LIST changes: +ALPRAZOLAM0.25 M1 PO; +CLARITIN10 MG PO; +COLACE100 MG/10 PO; +MELATONIN3 MG PO; +MIDODRINE HCL5 MG PO; +RENAGEL800 MG PO
[2023-11-30 19:20] VITALS: TEMP 101.4
[2023-11-30 19:48] LABS: BASOPHILS # (AUTO) 0.1 (0.0-0.1); BASOPHILS % 0.3 % (0.0-1.0); EOSINOPHILS % 0.1 % (0.0-6.0); HEMATOCRIT 32.8 % (34.2-44.1); HEMOGLOBIN 9.9 g/dL (12.0-16.0); LYMPHOCYTES # (AUTO) 0.5 (1.0-3.2); LYMPHOCYTES % 3.5 % (18.0-39.1); MEAN CORPUSCULAR HEMOGLOBIN 31.5 pg (28-32); MEAN CORPUSCULAR HGB CONC 30.2 g/dL (31-35); MEAN CORPUSCULAR VOLUME 104.5 fL (81-99); MONOCYTES # (AUTO) 1.2 (0.2-0.8); NEUTROPHILS % 87.1 % (38.7-80.0); PLATELET COUNT 179 x10e3/uL (140-360); RED BLOOD COUNT 3.14 x10e6/uL (3.6-5.1); RED CELL DISTRIBUTION WIDTH 13.2 % (11.7-14.4); WHITE BLOOD COUNT 14.93 x10e3/uL (4.8-10.8)
[2023-11-30] MEDS: ACETAMINOPHEN 325 MG TAB PO ONE (19:56)
[2023-11-30 20:19] LABS: B-TYPE NATRIURETIC PEPTIDE2 227.7 pg/mL (0-100)
[2023-11-30 20:31] LABS: ALBUMIN/GLOBULIN RATIO 0.8 (0.8-2.0); ANION GAP 11.5 mmol/L (8-16); BILIRUBIN,TOTAL 0.5 mg/dL (0.2-1.2); CALCIUM 8.4 mg/dL (8.4-10.2); CREATININE, SERUM 3.14 mg/dL (0.57-1.11); POTASSIUM 3.5 mmol/L (3.5-5.1); TOTAL PROTEIN 6.8 g/dL (6.5-8.1)
[2023-11-30 20:34] LABS: INFLUENZAE A&B ANTIGEN (RAPID) NEGATIVE (NEGATIVE); RESPIRATORY SYNC. VIRUS NEGATIVE (NEGATIVE)
[2023-11-30 20:36] LABS: TROPONIN I 0.074 ng/mL (0-0.300)
[2023-11-30] MEDS: ALBUTEROL/IPRATROPIUM 3 ML NEB NEB ONE (20:52)
[2023-11-30 20:54] VITALS: PULSE 79; RESP 16; O2SAT 100
[2023-11-30 22:00] VITALS: PULSE 77; RESP 24
[2023-11-30] MEDS ORDERED: DOXYCYCLINE HY100 MG PO (22:16)
[2023-11-30 22:34] VITALS: BP 125/47; PULSE 79; RESP 16; O2SAT 100
== END 2023-11-30 22:30 | disposition home or self-care (01) ==
LOC: ER 19:23
DX: R50.9 Fever, unspecified (principal); U07.1 COVID-19; J18.9 Pneumonia, unspecified organism; D72.829 Elevated white blood cell count, unspecified; R94.31 Abnormal electrocardiogram [ECG] [EKG]
CPT/HCPCS: 36415; 71045; 80053; 82550; 83605; 83880; 84484; 85025; 87040; 87400; 87420; 93005; 94640; 94799; 99284; J0696; U0002